=== PATIENT | male | born 1950 | race Caucasian/White ===

== ENCOUNTER → 2018-07-25 | Outpatient (CLI) | payer MEDICARE ==
[2018-07-25 09:11] LABS: Basophils # (A) 0.1 k/uL (0-0.2); Basophils % (A) 1 %; Eosinophils # (A) 0.5 k/uL (0-0.7); Eosinophils % (A) 7 %; HCT 41.5 % (39.0-53.0); HGB 13.3 gm/dL (13.0-17.5); Lymphocytes # (A) 1.5 k/uL (1.0-4.8); Lymphocytes % (A) 19 %; MCH 29.9 pg (25.0-35.0); MCV 93.5 fL (80.0-100.0); Mean Platelet Volume 5.9; Monocytes # (A) 0.4 k/uL (0-1.0); Monocytes % (A) 6 %; Neutrophils # (A) 4.8 k/uL (1.3-7.7); Neutrophils % (A) 65 %; Platelet Count 312 k/uL (150-450); RBC 4.44 m/uL (4.30-5.90); RDW 13.5 % (11.5-15.5); WBC 7.5 k/uL (3.8-10.6)
[2018-07-25 09:53] LABS: Calcium 9.2 mg/dL (8.4-10.2); Potassium 4.3 mmol/L (3.5-5.1)
== END | disposition home or self-care (01) ==
LOC: LABPAT 08:33
PROVIDERS: ATTEND Urology
DX: Z01.812 Encounter for preprocedural laboratory examination (principal); C61 Malignant neoplasm of prostate; I10 Essential (primary) hypertension; Z79.899 Other long term (current) drug therapy
CPT/HCPCS: 36415; 80048; 85025

== ENCOUNTER 2018-08-01 10:18 | Inpatient (IN) | payer MEDICARE ==
--- NOTE | 2018-07-31 19:11 | P.GSHP ---
History of Present Illness H&P Date: 07/18/18 Chief Complaint: Prostate cancer The patient is a 68-year-old white male found in October 2015 to have an elevated PSA level of 9.90. He underwent a prostate ultrasound with biopsies in March 2017. 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 The PSA level stefan to 11.8 in late 2017, and he thus underwent repeat prostate biopsies. He was found to have Evan 6 adenocarcinoma in the right apex, right lateral apex, and right mid regions. A focus of [place] 7 (3+4) was identified within the left lateral base. Alternative treatment options were reviewed in detail with the patient and his . These options include continued active surveillance, radiation therapy, and robotic assisted laparoscopic prostatectomy (RALP). He has chosen to undergo the latter. - Constitutional Constitutional: Denies chills, Denies fatigue - Cardiovascular Cardiovascular: Denies chest pain - Respiratory Respiratory: Denies dyspnea - Genitourinary (Male) Genitourinary: Reports erectile dysfunction, Reports urinary frequency Past Medical History Past Medical History: Atrial Fibrillation, Hypertension Additional Past Medical History / Comment(s): Prostate cancer, Rheumatoid arthritis, IgA nephropathy Additional Past Surgical History / Comment(s): Right LIBRADO, left forearm surgery Past Psychological History: No Psychological Hx Reported Smoking Status: Unknown if ever smoked - Past Family History Father Family Medical History: Cancer Additional Family Medical History / Comment(s): ASBESTOSIS Medications and Allergies Home Medications Medication Instructions Recorded Confirmed Type Apixaban [Eliquis] 5 mg PO BID 07/25/18 07/30/18 History Diltiazem HCl [Cartia Xt] 120 mg PO DAILY 07/25/18 07/25/18 History Enalapril [Vasotec] 2.5 mg PO HS 07/25/18 07/25/18 History Fish Oil/Dha/Epa [Fish Oil 1,200 3,600 each PO DAILY 07/25/18 07/25/18 History mg Fish Oil] Multivitamins, Thera [Multivitamin 1 tab PO DAILY 07/25/18 07/25/18 History (formulary)] Omeprazole Magnesium [PriLOSEC OTC] 20 mg PO DAILY PRN 07/25/18 07/30/18 History Allergies Allergy/AdvReac Type Severity Reaction Status Date / Time No Known Allergies Allergy Verified 07/25/18 11:45 Surgical - Exam - General well developed, well nourished, no distress - Respiratory normal respiratory effort, clear to auscultation - Cardiovascular Rhythm: regular Abnormal Heart Sounds: no systolic murmur, no diastolic murmur, no rub, no S3 Gallop, no S4 Gallop, no click, no other - Abdomen Abdomen: soft, non tender, no guarding, no rigid, no rebound Hernia: no none, no inguinal, no epigastric, no incisional, no reducible, no femoral, no umbilical, no scrotal, no incarcerated - Genitourinary normal penis with no external lesions, testicles non-tender - Rectum Rectum: normal sphincter tone, no masses, other (Prostate mildly enlarged and smooth) - Psychiatric oriented to time, oriented to person, oriented to place, speech is normal, memory intact Assessment and Plan (1) Adenocarcinoma of prostate Status: Acute Code(s): C61 - MALIGNANT NEOPLASM OF PROSTATE SNOMED Code(s): 635545009 Plan: Robotic-assisted laparoscopic prostatectomy (RALP) with bilateral pelvic lymphadenectomy. The procedure has been reviewed in detail with the patient and his . It has been decided to perform a right nerve sparing, partial left nerve sparing procedure, though his erections lack rigidity and postoperative erectile dysfunction is anticipated. The anticipated perioperative course has been discussed, along with potential risks. These include anesthesia, bleeding, infection, neurovascular injury, bowel injury, urinary leak, lymphocele, and vesical neck contracture. The patient is aware of the likelihood of postoperative urinary incontinence, which may be permanent. The possible need to convert to an open procedure was discussed, as was the possible need for adjuvant therapy.
[~2018-08-01 10:18] MED LIST: DEXAMETHASONE SOD PHOSPHATE 10 MG/ML 1 ML VIAL IV ONE; HYDROmorphone 0.5 MG/0.5 ML SYRINGE IVP PRN; MIDAZOLAM 2 MG/2 ML VIAL IV PRN; ONDANSETRON 4 MG/2 ML VIAL IVP ONE; ceFAZolin IN SWFI 2 GM/20 ML SYRINGE IVP ONE
[2018-08-01] MEDS: LACTATED RINGERS 1,000 ML IV SCH (10:57)
[2018-08-01] MEDS ORDERED: LIDOCAINE 1% 20 ML VIAL (10MG/ML) FOR IV START INTRADERMA ONE ×2 (10:58)
[2018-08-01] MEDS ORDERED: fentaNYL (PF) 50 MCG/ML 2 ML AMP ONE (11:53)
[2018-08-01] MEDS ORDERED: NEOSTIGMINE 1 MG/ML 10 ML VIAL ONE (11:53)
[2018-08-01] MEDS ORDERED: PROPOFOL 10 MG/ML 20 ML VIAL IV ONE (11:53)
[2018-08-01] MEDS ORDERED: SUCCINYLCHOLINE CHLORIDE 100 MG/5 ML SYR IV ONE (11:53)
[2018-08-01] MEDS ORDERED: GLYCOPYRROLATE 0.2 MG/ML 2 ML VIAL ONE (11:53)
[2018-08-01] MEDS ORDERED: LIDOCAINE 1% INJ 10MG/ML (20 ML MDV) ONE (11:53)
[2018-08-01] MEDS ORDERED: MIDAZOLAM 2 MG/2 ML VIAL ONE (11:53)
[2018-08-01] MEDS ORDERED: VECURONIUM 10 MG VIAL IV ONE (11:53)
[2018-08-01] MEDS ORDERED: ePHEDrine SULFATE/0.9% NACL/PF 50 MG/5 ML SYRINGE IV ONE (11:53)
[2018-08-01] MEDS ORDERED: HEPARIN SODIUM,PORCINE 5,000 UNIT/ML 1 ML VIAL SQ ONE (12:00)
[2018-08-01] MEDS ORDERED: BUPIVACAINE (PF) 0.25% 30 ML VIAL SQ ONE ×2 (12:27→16:16)
[2018-08-01] MEDS ORDERED: LACTATED RINGERS 1,000 ML IV ONE ×2 (13:48→14:24)
[2018-08-01] MEDS ORDERED: PANTOPRAZOLE 40 MG TABLET PO PRN (16:22)
[2018-08-01] MEDS ORDERED: ONDANSETRON 4 MG/2 ML VIAL IVP PRN (16:23)
[2018-08-01] MEDS ORDERED: KETOROLAC 30 MG/ML 1 ML VIAL IVP PRN (16:23)
[2018-08-01] MEDS ORDERED: HYDROmorphone 1 MG/ML 1 ML SYRINGE IVP PRN (16:23)
[2018-08-01] MEDS ORDERED: ACETAMINOPHEN TAB 325 MG TAB PO PRN (16:23)
--- NOTE | 2018-08-01 16:28 | P.OP ---
Date of Procedure: 08/01/18 Preoperative Diagnosis: Adenocarcinoma of the prostate Postoperative Diagnosis: Same Procedure(s) Performed: Robotic-assisted laparoscopic prostatectomy (RALP) with bilateral pelvic lymphadenectomy Anesthesia: JOHN Surgeon: Roberto Vela Estimated Blood Loss (ml): 125 IV fluids (ml): 2,000 Condition: stable Disposition: PACU Indications for Procedure: The patient is a 68-year-old white male found in October 2015 to have an elevated PSA level of 9.90. He underwent a prostate ultrasound with biopsies in March 2017. The prostate volume at that time was 22 mL, and 3 of 12 biopsies showed [place] 6 adenocarcinoma in the right apex, right lateral apex, and left lateral mid regions of the peripheral zone. The PSA level stefan to 11.8 in late 2017, and he thus underwent repeat prostate biopsies. He was found to have Evan 6 adenocarcinoma in the right apex, right lateral apex, and right mid regions. A focus of Evan 7 (3+4) was identified within the left lateral base. He has elected to undergo a robotic assisted laparoscopic prostatectomy ( RALP). Operative Findings: No evidence of extraprostatic disease. Description of Procedure: The patient was taken in the operating room and placed in the dorsal lithotomy position, with his legs supported in Luis stirrups. He was carefully positioned on a beanbag for stability. The abdomen and external genitalia were prepped and draped sterilely. A Grove catheter was inserted. The Veress needle was passed through the anterior abdominal wall immediately cephalad to the umbilicus, and insufflation was performed to a pressure of 20 mm Hg. Once insufflation was performed, the Veress needle was removed and a supraumbilical incision was made, through which a 12 mm camera port was placed. Under camera guidance, 3 8 mm robotic ports were placed, 2 on the left and one on the right. An additional 12 mm port was placed on the right lateral side for use as an operations administrative assistant port. A 5 mm port was placed to the right of the camera port for suction. The patient was placed in Trendelenburg position, and docking was then performed to the da Silver system utilizing a 4-arm approach. The abdomen was examined. The sigmoid colon was mobilized out of the pelvis. The peritoneum was incised lateral to the medial umbilical ligaments bilaterally , exposing the pubis. The peritoneum was then incised across the midline, allowing the bladder flap to be taken down. The endopelvic fascia was opened bilaterally, and muscular attachments from the urogenital diaphragm were swept away from the prostate. Bilateral pelvic lymphadenectomies were performed in the standard fashion. The peritoneal incisions were extended in a cephalad direction, and the vas deferens were divided bilaterally. Margins of dissection were the bifurcation of the iliac vessels proximally, the circumflex iliac vein distally, the external iliac artery laterally, and the obturator nerve medially. A combination of sharp and blunt dissection was used. Care was taken to avoid any neurovascular injury, and the use of monopolar electrocautery was avoided immediately adjacent to neurovascular structures. The lymphatic package was clipped distally. No enlarged lymph nodes were encountered. There were no complications. The vesical neck was incised transversely, down to the lumen. The Grove catheter was brought out through the anterior vesical neck incision and was used for traction. The posterior aspect of the vesical neck was incised, such that the full-thickness of the vesical neck was divided. The anterior layer of the Denonvilliers fascia was incised, exposing the vas deferens. Each were isolated and divided. Next, each of the seminal vesicles were dissected away from adjacent tissues, and vascular attachments were cauterized and divided. The posterior leaf of Denonvilliers fascia was incised transversely, allowing entry into the plane between the prostate and rectum. With lateral spreading, this plane was developed down to the apex. This exposed the lateral vascular pedicles bilaterally. These were clipped and divided in an antegrade fashion, down to the apex. The use of electrocautery was avoided to prevent thermal damage to the nerves. The plane of dissection was immediately adjacent to the prostate on the right to preserve the neurovascular bundle. A partial nerve sparing procedure was performed on the left. The remaining apical attachments were swept away from the prostate. The dorsal venous complex was incised, as well as periurethral tissue. At this point, only the urethra remained intact. This was transected immediately distal to the prostatic apex using cold scissors. The specimen was placed within a specimen bag. The dorsal venous complex was sutured using a V-Loc suture in a running fashion. The suture was passed through the periosteum of the pubis periurethral support. A second V-Loc suture was then used to place the Kingsley stitch, incorporating the rhabdosphincter and the edge of Denonvilliers fascia. This allowed the bladder to be taken down to the urethra, leaving the vesical neck immediately adjacent to the urethra. The vesicourethral anastomosis was then performed using a V-Loc suture in a running fashion. After completing the anastomosis, an 18-Turk[place] Grove catheter was placed and approximately 150 mL of 0.9 normal saline were instilled into the bladder. No extravasation of irrigant from the vesicourethral anastomosis was noted. A small amount of oozing was noted from the vascular pedicles, so Surgicel was placed bilaterally. Tisseel was sprayed into the pelvis over the vascular pedicles, dorsal vein, and vesicourethral anastomosis. The patient was returned to the supine position. Undocking was performed, and the specimen bag sutures were passed through the camera port. After removing all the ports and allowing all of the CO2 to be released from the peritoneal cavity, the camera port incision was enlarged to allow removal of the surgical specimen. The fascia of this incision was then closed using 0 Vicryl suture in an interrupted [id number] fashion. Each of the skin incisions were then closed using 4-0 Monocryl suture in a subcuticular fashion. Marcaine was injected at each of the incision sites. Dermabond was applied to each incision. The Grove catheter was connected to gravity drainage. All sponge and needle counts were correct. The patient tolerated the procedure well was taken to the recovery room in stable condition.
[2018-08-01] MEDS: DEXTROSE 5%-0.45% NACL 1,000 ML IV SCH (17:56)
[2018-08-01 19:09] VITALS: BMI 28.7
[2018-08-01] MEDS: HEPARIN SODIUM,PORCINE 5,000 UNIT/ML 1 ML VIAL SQ SCH (20:38)
[2018-08-01] MEDS ORDERED: LISINOPRIL 5 MG TAB PO SCH (21:00)
[2018-08-02 00:18] VITALS: RESP 16
[2018-08-02] MEDS: DEXTROSE 5%-0.45% NACL 1,000 ML IV SCH ×2 (02:48→08:32)
[2018-08-02] MEDS: HEPARIN SODIUM,PORCINE 5,000 UNIT/ML 1 ML VIAL SQ SCH (08:32)
[2018-08-02] MEDS ORDERED: DILTIAZEM CD 120 MG CAP.ER.24H PO SCH (09:00)
[2018-08-02 09:27] VITALS: BP 113/60; PULSE 80; TEMP 98.6
--- NOTE | 2018-08-02 12:32 | P.DS ---
Providers Date of admission: 08/01/18 10:18 Expected date of discharge: 08/02/18 Attending physician: Roberto Vela Primary care physician: Bin Herrera - Discharge Diagnosis(es) (1) Adenocarcinoma of prostate Current Visit: Yes Status: Acute Hospital Course: On the day of admission, the patient underwent an uncomplicated RALP with bilateral pelvic lymphadenectomy. The perioperative course was unremarkable. On the first postoperative day, he was tolerating diet and ambulating well. He reported mild abdominal discomfort, as expected. He was afebrile with stable vital signs. On examination, the abdomen was soft and non-distended, and incisions were clean and dry. Procedures: Robotic-assisted laparoscopic prostatectomy (RALP) with bilateral pelvic lymphadenectomy on 08/01/2018. Patient Condition at Discharge: Good Plan - Discharge Summary Discharge Rx Participant: Yes New Discharge Prescriptions: New Ciprofloxacin HCl [Cipro] 250 mg PO Q12HR #6 tablet Hydrocodone/Acetaminophen [Addison 5-325] 1 - 2 each PO Q4HR PRN #6 tab PRN Reason: Pain No Action Omeprazole Magnesium [PriLOSEC OTC] 20 mg PO DAILY PRN PRN Reason: GERD SX Multivitamins, Thera [Multivitamin (formulary)] 1 tab PO DAILY Enalapril [Vasotec] 2.5 mg PO HS Diltiazem HCl [Cartia Xt] 120 mg PO DAILY Apixaban [Eliquis] 5 mg PO BID Fish Oil/Dha/Epa [Fish Oil 1,200 mg Fish Oil] 3,600 each PO DAILY Discharge Medication List Apixaban [Eliquis] 5 mg PO BID 07/25/18 [History] Diltiazem HCl [Cartia Xt] 120 mg PO DAILY 07/25/18 [History] Enalapril [Vasotec] 2.5 mg PO HS 07/25/18 [History] Fish Oil/Dha/Epa [Fish Oil 1,200 mg Fish Oil] 3,600 each PO DAILY 07/25/18 [ History] Multivitamins, Thera [Multivitamin (formulary)] 1 tab PO DAILY 07/25/18 [History ] Omeprazole Magnesium [PriLOSEC OTC] 20 mg PO DAILY PRN 07/25/18 [History] Ciprofloxacin HCl [Cipro] 250 mg PO Q12HR #6 tablet 08/02/18 [Rx] Hydrocodone/Acetaminophen [Addison 5-325] 1 - 2 each PO Q4HR PRN #6 tab 08/02/18 [ Rx] Follow up Appointment(s)/Referral(s): Roberto Vela MD [STAFF PHYSICIAN] - 08/12/18 Activity/Diet/Wound Care/Special Instructions: Discharge home with Grove catheter. Please provide patient with an overnight drainage bag as well as a urinary leg bag, and instruct him on the use of both. Okay to shower. Diet as tolerated. No lifting, driving, or strenuous activity. Begin taking ciprofloxacin one day prior to follow-up appointment. Please reassure patient that it is common to experience the following: Hematuria , urinary leakage around the catheter, abdominal wall bruising, and penoscrotal swelling. Okay to resume Eliquis in 5 days. Discharge Disposition: HOME SELF-CARE
== END 2018-08-02 14:46 | disposition home or self-care (01) | DRG 707 ==
LOC: 2ORMAIN 10:18 → 4SSUR 16:30
PROVIDERS: ADMIT Urology; ATTEND Urology
PROC: 8E0W4CZ Robotic Assisted Procedure of Trunk Region, Percutaneous Endoscopic Approach (ICD-10-PCS; 2018-08-01)
PROC: 0VT04ZZ Resection of Prostate, Percutaneous Endoscopic Approach (ICD-10-PCS; 2018-08-01)
PROC: 0VT34ZZ Resection of Bilateral Seminal Vesicles, Percutaneous Endoscopic Approach (ICD-10-PCS; 2018-08-01)
PROC: 07TC4ZZ Resection of Pelvis Lymphatic, Percutaneous Endoscopic Approach (ICD-10-PCS; principal; 2018-08-01 12:30)
DX: C61 Malignant neoplasm of prostate (principal); N02.8 Recurrent and persistent hematuria with other morphologic changes; I48.0 Paroxysmal atrial fibrillation; I12.9 Hypertensive chronic kidney disease with stage 1 through stage 4 chronic kidney disease, or unspecified chronic kidney disease; N18.9 Chronic kidney disease, unspecified; N52.9 Male erectile dysfunction, unspecified; K21.9 Gastro-esophageal reflux disease without esophagitis; M06.9 Rheumatoid arthritis, unspecified; Z96.641 Presence of right artificial hip joint; Z79.01 Long term (current) use of anticoagulants; Z79.899 Other long term (current) drug therapy
CPT/HCPCS: 86850; 86900; 86901; 88307; 88309; 94760

== ENCOUNTER → 2018-09-09 | Outpatient (CLI) | payer MEDICARE | END | disposition home or self-care (01) | LOC: LABWHC1 06:51 | PROVIDERS: ATTEND Urology | DX: C61 Malignant neoplasm of prostate (principal) | CPT/HCPCS: 36415; 84153 ==

== ENCOUNTER → 2018-10-16 | Outpatient (CLI) | payer MEDICARE ==
[2018-10-16 08:26] LABS: Basophils # (A) 0.1 k/uL (0-0.2); Basophils % (A) 1 %; Eosinophils # (A) 0.5 k/uL (0-0.7); Eosinophils % (A) 7 %; HCT 40.7 % (39.0-53.0); HGB 13.1 gm/dL (13.0-17.5); Lymphocytes # (A) 1.5 k/uL (1.0-4.8); Lymphocytes % (A) 22 %; MCH 30.3 pg (25.0-35.0); MCHC 32.1 g/dL (31.0-37.0); MCV 94.4 fL (80.0-100.0); Mean Platelet Volume 6.6; Monocytes # (A) 0.4 k/uL (0-1.0); Monocytes % (A) 6 %; Neutrophils # (A) 4.1 k/uL (1.3-7.7); Neutrophils % (A) 61 %; Platelet Count 259 k/uL (150-450); RBC 4.32 m/uL (4.30-5.90); RDW 13.3 % (11.5-15.5); WBC 6.8 k/uL (3.8-10.6)
[2018-10-16 11:52] LABS: Albumin 3.8 g/dL (3.80-4.90); Albumin/Globulin Ratio 1.41 (1.60-3.17); Anion Gap 6.5 mmol/L (4.00-12.00); Calcium 9.1 mg/dL (8.7-10.3); Carbon Dioxide 27.5 mmol/L (21.6-31.8); Globulin 2.7 g/dL (1.6-3.3); Phosphorus 2.7 mg/dL (2.4-5.1); Potassium 4.2 mmol/L (3.5-5.5); Total Bilirubin 0.7 mg/dL (0.3-1.2); Total Protein 6.5 g/dL (6.2-8.2)
[2018-10-17 01:45] LABS: Total Protein 24 Hour,Urine 211.5 mg/24Hr; Total Volume 24 Hour,Urine 1500 mL
== END | disposition home or self-care (01) ==
LOC: LABWHC1 07:16
PROVIDERS: ATTEND Internal Medicine Nephrology
DX: N18.3 Chronic kidney disease, stage 3 (moderate) (principal)
CPT/HCPCS: 36415; 80053; 81050; 82575; 83970; 84100; 84156; 85025

== ENCOUNTER → 2018-12-06 | Outpatient (CLI) | payer MEDICARE | END | disposition home or self-care (01) | LOC: LABWHC1 13:20 | PROVIDERS: ATTEND Urology | DX: C61 Malignant neoplasm of prostate (principal) | CPT/HCPCS: 36415; 84153 ==

== ENCOUNTER → 2019-03-10 | Outpatient (CLI) | payer MEDICARE | END | disposition home or self-care (01) | LOC: LABWHC1 07:54 | PROVIDERS: ATTEND Urology | DX: C61 Malignant neoplasm of prostate (principal) | CPT/HCPCS: 36415; 84153 ==

== ENCOUNTER → 2019-04-21 | Outpatient (CLI) | payer MEDICARE ==
[2019-04-21 08:23] LABS: Basophils # (A) 0.2 k/uL (0-0.2); Basophils % (A) 2 %; Eosinophils # (A) 0.6 k/uL (0-0.7); Eosinophils % (A) 8 %; HCT 42.5 % (39.0-53.0); HGB 13.8 gm/dL (13.0-17.5); Lymphocytes # (A) 1.2 k/uL (1.0-4.8); Lymphocytes % (A) 17 %; MCH 30.8 pg (25.0-35.0); MCHC 32.4 g/dL (31.0-37.0); MCV 95.1 fL (80.0-100.0); Mean Platelet Volume 5.9; Monocytes # (A) 0.4 k/uL (0-1.0); Monocytes % (A) 6 %; Neutrophils # (A) 4.9 k/uL (1.3-7.7); Neutrophils % (A) 66 %; Platelet Count 257 k/uL (150-450); RBC 4.47 m/uL (4.30-5.90); RDW 13.1 % (11.5-15.5); WBC 7.4 k/uL (3.8-10.6)
[2019-04-21 08:32] LABS: Total Volume 24 Hour,Urine 1300 mls (250-2400)
[2019-04-21 08:34] LABS: ALT 16 U/L (21-72); AST 22 U/L (17-59); Anion Gap 6 mmol/L; Blood Urea Nitrogen 24 mg/dL (9-20); Carbon Dioxide 29 mmol/L (22-30); Chloride 107 mmol/L (98-107); Cholesterol 161 mg/dL (<200); HDL Cholesterol 46 mg/dL (40-60); LDL Cholesterol,Calculated 101 mg/dL (0-99); Potassium 4.4 mmol/L (3.5-5.1); Sodium 142 mmol/L (137-145); Triglycerides 68 mg/dL (<150)
[2019-04-21 16:51] LABS: Total Protein 24 Hour,Urine 141.7 mg/24Hr; Total Volume 24 Hour,Urine 1300 mL
== END | disposition home or self-care (01) ==
LOC: LABWHC1 07:53
PROVIDERS: ATTEND Internal Medicine Nephrology
DX: I10 Essential (primary) hypertension (principal); M16.9 Osteoarthritis of hip, unspecified; N02.8 Recurrent and persistent hematuria with other morphologic changes
CPT/HCPCS: 36415; 80051; 80061; 81050; 82575; 84156; 84450; 84460; 84520; 85025

== ENCOUNTER → 2019-06-09 | Outpatient (CLI) | payer MEDICARE | END | disposition home or self-care (01) | LOC: LABWHC1 07:32 | PROVIDERS: ATTEND Urology | DX: C61 Malignant neoplasm of prostate (principal) | CPT/HCPCS: 36415; 84153 ==

== ENCOUNTER → 2019-10-27 | Outpatient (CLI) | payer MEDICARE ==
[2019-10-27 12:03] LABS: Creatinine 24 Hour,Urine 1535.6 mg/24hr (1000.0-2000.0)
[2019-10-27 15:34] LABS: Total Volume 24 Hour,Urine 1100 mL
[2019-10-27 16:59] LABS: Total Protein 24 Hour,Urine 134.2 mg/24Hr
== END | disposition home or self-care (01) ==
LOC: LABWHC1 08:31 → EDSTATUS 08:35
PROVIDERS: ATTEND Internal Medicine Nephrology
DX: C61 Malignant neoplasm of prostate (principal); N18.3 Chronic kidney disease, stage 3 (moderate)
CPT/HCPCS: 36415; 81050; 82575; 84153; 84156

== ENCOUNTER → 2020-05-12 | Outpatient (CLI) | payer MEDICARE | END | disposition home or self-care (01) | LOC: LABWHC1 07:37 | PROVIDERS: ATTEND Urology | DX: C61 Malignant neoplasm of prostate (principal) | CPT/HCPCS: 36415; 84153 ==

== ENCOUNTER → 2020-10-18 | Outpatient (CLI) | payer MEDICARE ==
[2020-10-18 11:06] LABS: Creatinine 24 Hour,Urine 1578.8 mg/24hr (1000.0-2000.0)
[2020-10-18 15:03] LABS: Total Volume 24 Hour,Urine 1250 mL
[2020-10-20 07:32] LABS: Total Protein 24 Hour,Urine 72.5 mg/24Hr
== END | disposition home or self-care (01) ==
LOC: LABWHC1 07:44
PROVIDERS: ATTEND Internal Medicine Nephrology
DX: N02.8 Recurrent and persistent hematuria with other morphologic changes (principal)
CPT/HCPCS: 36415; 81050; 82575; 84156

== ENCOUNTER → 2022-05-08 | Outpatient (CLI) | payer MEDICARE ==
[2022-05-08 11:14] LABS: ALT 28 U/L (4-49); AST 56 U/L (17-59); African American GFR (CKD) 42 (>60 ml/min/1.73 sqM); Albumin 3.7 g/dL (3.5-5.0); Alkaline Phosphatase 74 U/L (38-126); Anion Gap 6 mmol/L; Blood Urea Nitrogen 34 mg/dL (9-20); Calcium 8.6 mg/dL (8.4-10.2); Carbon Dioxide 27 mmol/L (22-30); Chloride 106 mmol/L (98-107); Globulin 3.8 g/dL; Glucose 93 mg/dL (74-99); Non-African American GFR(CKD) 36 (>60 ml/min/1.73 sqM); Potassium 4.7 mmol/L (3.5-5.1); Sodium 139 mmol/L (137-145); Total Bilirubin 1.2 mg/dL (0.2-1.3); Total Protein 7.5 g/dL (6.3-8.2)
[2022-05-08 14:54] LABS: Chol/HDL Ratio 3.39 Ratio; LDL Cholesterol,Calculated 94.5 mg/dL (0.0-131.0); VLDL Calculation 13.42 mg/dL (5.00-40.00)
[2022-05-08 16:07] LABS: Basophils # (A) 0.08 X 10*3/uL (0.00-0.10); Basophils % (A) 0.9 %; Eosinophils % (A) 4.3 %; HCT 38.2 % (39.6-50.0); HGB 12.3 g/dL (13.0-17.0); Immature Grans, Automated 0.4 %; Lymphocytes # (A) 1.56 X 10*3/uL (0.90-5.00); Lymphocytes % (A) 16.8 %; MCH 30.8 pg (27.0-32.0); MCHC 32.2 g/dL (32.0-37.0); MCV 95.5 fL (80.0-97.0); Monocytes # (A) 0.84 X 10*3/uL (0.20-1.00); Monocytes % (A) 9.1 %; NRBC Per 100 WBC 0 /100 WBCS (0.0-0.0); Neutrophils # (A) 6.34 X 10*3/uL (1.80-7.70); Neutrophils % (A) 68.5 %; Platelet Count 270 X 10*3/uL (140-440); RDW 13.8 % (11.5-14.5); WBC 9.26 X 10*3/uL (4.50-10.00)
[2022-05-08 16:09] LABS: Creatinine 24 Hour,Urine 1282.4 mg/24hr (1000.0-2000.0)
[2022-05-08 22:14] LABS: Total Protein 24 Hour,Urine 119.7 mg/24Hr (0.0-165.0); Total Volume 24 Hour,Urine 1400 mL
== END | disposition home or self-care (01) ==
LOC: LABWHC1 08:45
PROVIDERS: ATTEND Internal Medicine Nephrology
DX: D07.5 Carcinoma in situ of prostate (principal); N18.30 Chronic kidney disease, stage 3 unspecified
CPT/HCPCS: 36415; 80053; 80061; 81050; 82575; 84156; 85025

== ENCOUNTER → 2022-07-12 | Outpatient (CLI) | payer MEDICARE ==
[2022-07-12 10:32] LABS: Eosinophils % (A) 3.1 %; HCT 45.1 % (39.6-50.0); HGB 14.2 g/dL (13.0-17.0); Immature Grans, Automated 1.1 %; Lymphocytes % (A) 18.6 %; MCH 31.6 pg (27.0-32.0); MCHC 31.5 g/dL (32.0-37.0); MCV 100.4 fL (80.0-97.0); Mean Platelet Volume 9.1 fL (9.5-12.2); Monocytes # (A) 0.92 X 10*3/uL (0.20-1.00); Monocytes % (A) 9.5 %; NRBC Per 100 WBC 0 /100 WBCS (0.0-0.0); Neutrophils # (A) 6.43 X 10*3/uL (1.80-7.70); Neutrophils % (A) 66.7 %; Platelet Count 260 X 10*3/uL (140-440); RBC 4.49 X 10*6/uL (4.40-5.60); RDW 14.5 % (11.5-14.5); WBC 9.66 X 10*3/uL (4.50-10.00)
[2022-07-12 10:37] LABS: African American GFR (CKD) 42.9 (60.0-200.0); Anion Gap 9.3 mmol/L (10.00-18.00); BUN/Creat Ratio 17.56 Ratio (12.00-20.00); Blood Urea Nitrogen 31.6 mg/dL (9.0-27.0); Calcium 9.1 mg/dL (8.7-10.3); Carbon Dioxide 28.7 mmol/L (20.0-27.5); Potassium 5.3 mmol/L (3.5-5.5)
== END | disposition home or self-care (01) ==
LOC: LABWHC1 07:58
PROVIDERS: ATTEND Internal Medicine Nephrology
DX: N02.8 Recurrent and persistent hematuria with other morphologic changes (principal)
CPT/HCPCS: 36415; 80048; 85025

== ENCOUNTER → 2023-02-20 | Outpatient (CLI) | payer MEDICARE ==
[2023-02-20 11:53] LABS: Appearance,Urine Clear (Clear); Bilirubin,Urine Negative (Negative); Blood,Urine Negative (Negative); Color,Urine Light Yellow; Glucose,Urine (UA) Negative (Negative); Ketones,Urine Negative (Negative); Leukocyte Esterase,Urine Negative (Negative); Nitrite,Urine Negative (Negative); PH, Urine 5.5 (5.0-8.0); Protein,Urine Negative (Negative); Specific Gravity,Urine 1.016 (1.001-1.035); Urobilinogen,Urine <2.0 mg/dL (<2.0)
[2023-02-20 12:07] LABS: Creatinine,Urine Random 128.9 mg/dL; Protein/Creatinine Ratio,Urine 0.054
[2023-02-20 16:44] LABS: HCT 38.3 % (39.6-50.0); HGB 12.3 d/dL (13.0-17.0); MCH 32.5 pg (27.0-32.0); MCHC 32.1 d/dL (32.0-37.0); MCV 101.1 FL (80.0-97.0); Mean Platelet Volume 9.9 FL (9.5-12.2); NRBC Per 100 WBC 0 X 10*3/uL (0.00-0.01); Platelet Count 261 X 10*3/uL (140-440); RBC 3.79 X 10*6/uL (4.40-5.60); RDW 14.4 % (11.5-14.5); WBC 10.64 X 10*3/uL (4.50-10.00)
[2023-02-20 16:52] LABS: BUN/Creat Ratio 14.81 Ratio (12.00-20.00); Blood Urea Nitrogen 23.7 mg/dL (9.0-27.0); Calcium 9.6 mg/dL (8.7-10.3); Carbon Dioxide 25.8 mmol/L (21.6-31.8); Chloride 106 mmol/L (96-109); Glucose 95 mg/dL (70-110); Magnesium 1.9 mg/dL (1.5-2.4); Potassium 4.8 mmol/L (3.5-5.5); Sodium 142 mmol/L (135-145)
[2023-02-20 16:53] LABS: Phosphorus 3.9 mg/dL (2.4-5.1); Uric Acid 4.1 mg/dL (3.7-8.7)
== END | disposition home or self-care (01) ==
LOC: LABWHC1 09:53
DX: N17.9 Acute kidney failure, unspecified (principal); N02.8 Recurrent and persistent hematuria with other morphologic changes
CPT/HCPCS: 36415; 80048; 81003; 82570; 83735; 83970; 84100; 84156; 84550; 85027

== ENCOUNTER → 2023-08-21 | Outpatient (CLI) | payer MEDICARE ==
[2023-08-21 09:22] LABS: Creatinine,Urine Random 133.9 mg/dL; Protein/Creatinine Ratio,Urine 0.045
[2023-08-21 11:15] LABS: HCT 40.9 % (39.6-50.0); HGB 13.2 g/dL (13.0-17.0); MCH 31.9 pg (27.0-32.0); MCHC 32.3 g/dL (32.0-37.0); MCV 98.8 FL (80.0-97.0); Mean Platelet Volume 9.6 FL (9.5-12.2); NRBC Per 100 WBC 0 X 10*3/uL (0.00-0.01); Platelet Count 262 X 10*3/uL (140-440); RBC 4.14 X 10*6/uL (4.40-5.60); RDW 14.6 % (11.5-14.5); WBC 9.23 X 10*3/uL (4.50-10.00)
[2023-08-21 11:23] LABS: BUN/Creat Ratio 14.12 Ratio (12.00-20.00); Calcium 9.8 mg/dL (8.7-10.3); Carbon Dioxide 27.3 mmol/L (21.6-31.8); Chloride 106 mmol/L (96-109); Glucose 94 mg/dL (70-110); Potassium 4.4 mmol/L (3.5-5.5); Sodium 142 mmol/L (135-145)
[2023-08-21 12:19] LABS: Appearance,Urine Clear (Clear); Bilirubin,Urine Negative (Negative); Blood,Urine Negative (Negative); Color,Urine Yellow (Yellow); Ketones,Urine Negative (Negative); Nitrite,Urine Negative (Negative); PH, Urine 5.5; Specific Gravity,Urine 1.017 (1.001-1.030); Urobilinogen,Urine 0.2 E.U./DL
== END | disposition home or self-care (01) ==
LOC: LABWHC1 07:54
DX: N17.8 Other acute kidney failure (principal); N02.8 Recurrent and persistent hematuria with other morphologic changes; D07.5 Carcinoma in situ of prostate
CPT/HCPCS: 36415; 80048; 81003; 82570; 84156; 85027

== ENCOUNTER → 2024-03-14 | Outpatient (CLI) | payer MEDICARE ==
[2024-03-14 09:51] LABS: Creatinine,Urine Random 102.2 mg/dL; Protein/Creatinine Ratio,Urine 0.078
[2024-03-14 11:21] LABS: HCT 39.5 % (39.6-50.0); HGB 12.7 g/dL (13.0-17.0); MCH 31.4 pg (27.0-32.0); MCHC 32.2 g/dL (32.0-37.0); MCV 97.5 FL (80.0-97.0); Mean Platelet Volume 9.8 FL (9.5-12.2); NRBC Per 100 WBC 0 X 10*3/uL (0.00-0.01); Platelet Count 249 X 10*3/uL (140-440); RBC 4.05 X 10*6/uL (4.40-5.60); RDW 14.1 % (11.5-14.5); WBC 7.89 X 10*3/uL (4.50-10.00)
[2024-03-14 11:30] LABS: Albumin 3.7 g/dL (3.8-4.9); BUN/Creat Ratio 17.25 Ratio (12.00-20.00); Blood Urea Nitrogen 27.6 mg/dL (9.0-27.0); Calcium 9.4 mg/dL (8.7-10.3); Carbon Dioxide 26.8 mmol/L (21.6-31.8); Chloride 105 mmol/L (96-109); Glucose 91 mg/dL (70-110); Magnesium 1.9 mg/dL (1.5-2.4); Phosphorus 3.1 mg/dL (2.4-5.1); Sodium 140 mmol/L (135-145); Uric Acid 5.8 mg/dL (3.7-8.7)
[2024-03-14 16:42] LABS: Appearance,Urine Clear (Clear); Bilirubin,Urine Negative (Negative); Blood,Urine Negative (Negative); Color,Urine Yellow (Yellow); Ketones,Urine Negative (Negative); Nitrite,Urine Negative (Negative); PH, Urine 5.5; Specific Gravity,Urine 1.015 (1.001-1.030); Urobilinogen,Urine 0.2
== END | disposition home or self-care (01) ==
LOC: LABWHC1 08:16
PROVIDERS: ATTEND Internal Medicine
DX: N17.8 Other acute kidney failure (principal); D07.5 Carcinoma in situ of prostate; N02.8 Recurrent and persistent hematuria with other morphologic changes
CPT/HCPCS: 36415; 80048; 81003; 82040; 82570; 83735; 83970; 84100; 84156; 84550; 85027

== ENCOUNTER → 2024-08-21 | Outpatient (CLI) | payer MEDICARE ==
[2024-08-21 10:19] LABS: HCT 37.9 % (39.6-50.0); HGB 12.1 g/dL (13.0-17.0); MCHC 31.9 g/dL (32.0-37.0); MCV 100.3 FL (80.0-97.0); Mean Platelet Volume 9.9 FL (9.5-12.2); NRBC Per 100 WBC 0 X 10*3/uL (0.00-0.01); Platelet Count 255 X 10*3/uL (140-440); RBC 3.78 X 10*6/uL (4.40-5.60); RDW 14.3 % (11.5-14.5); WBC 6.77 X 10*3/uL (4.50-10.00)
[2024-08-21 10:29] LABS: Appearance,Urine Clear (Clear); Bilirubin,Urine Negative (Negative); Blood,Urine Small (Negative); Color,Urine Yellow (Yellow); Ketones,Urine Negative (Negative); Nitrite,Urine Negative (Negative); PH, Urine 5.5; Specific Gravity,Urine 1.015 (1.001-1.030); Urobilinogen,Urine 0.2 E.U./DL
[2024-08-21 10:30] LABS: Creatinine,Urine Random 103.1 mg/dL; Protein/Creatinine Ratio,Urine 0.107
[2024-08-21 10:34] LABS: Bacteria,Urine None Seen (None Seen)
[2024-08-21 10:51] LABS: BUN/Creat Ratio 13.82 Ratio (12.00-20.00); Blood Urea Nitrogen 23.5 mg/dL (9.0-27.0); Calcium 9.1 mg/dL (8.7-10.3); Carbon Dioxide 26.3 mmol/L (21.6-31.8); Chloride 107 mmol/L (96-109); Glucose 95 mg/dL (70-110); Potassium 5.1 mmol/L (3.5-5.5); Sodium 142 mmol/L (135-145)
== END | disposition home or self-care (01) ==
LOC: LABWHC1 07:25
PROVIDERS: ATTEND Internal Medicine
DX: N05.9 Unspecified nephritic syndrome with unspecified morphologic changes (principal)
CPT/HCPCS: 36415; 80048; 81001; 82570; 84156; 85027